=== PATIENT | female | born 2000 | race African-American/Black ===

== ENCOUNTER 2022-07-29 11:37 | Emergency (ER) | payer OTHER ==
[~2022-07-29] VITALS: Ht 167.6 cm; Wt 71.2 kg
[2022-07-29 11:50] VITALS: BP 114/75
[2022-07-29] MEDS ORDERED: cefTRIAXone 500 MG in LIDOCAINE MPF 1% 1 ML IM ONE (12:40)
[2022-07-29] MEDS ORDERED: cefTRIAXone 500 MG VIAL ONE (12:47)
[2022-07-29] MEDS ORDERED: LIDOCAINE MPF 1% 5 ML ONE (12:47)
--- NOTE | 2022-07-29 12:57 | NUR ---
MEDICATED PT WITH [facility].
[2022-07-29 13:26] LABS: APPEARANCE,URINE CLEAR (CLEAR); BILIRUBIN,URINE NEGATIVE (NEGATIVE); BLOOD, URINE NEGATIVE (NEGATIVE); COLOR,URINE YELLOW (YELLOW); LEUKOCYTE ESTERASE ,URINE NEGATIVE (NEGATIVE); NITRITE, URINE NEGATIVE (NEGATIVE); UGLUCOSE 3+ (NEGATIVE)
[2022-07-29] MEDS ORDERED: DOXY-690 PO (13:39)
--- NOTE | 2022-07-29 14:00 | NUR ---
ATTEMPTED TO D/C PT, NOT FOUND IN ROOM. PT LEFT WITHOUT D/C PAPERS. ATTEMPTED TO CONTACT PT TO INFORM HER THAT ABX WAS SENT TO HER PHARMACY. NO ANSWER, LEFT MESSAGE. DR ECHEVARRIA AWARE AWARE.
== END 2022-07-29 14:00 | disposition home or self-care (01) ==
LOC: MED 11:37
DX: A64 Unspecified sexually transmitted disease (principal); Z86.19 Personal history of other infectious and parasitic diseases; Z79.2 Long term (current) use of antibiotics
CPT/HCPCS: 81003; 81025; 96372; 99283; J0696; J2001; 81002

== ENCOUNTER 2022-11-25 07:27 | Emergency (ER) | payer OTHER ==
[~2022-11-25] VITALS: Ht 167.6 cm; Wt 74.8 kg
[~2022-11-25 07:27] MED LIST: DOXY-690 PO
[2022-11-25 07:33] VITALS: BP 156/97
--- NOTE | 2022-11-25 07:36 | NUR ---
PT AMB TO BED 5
--- NOTE | 2022-11-25 07:39 | NUR ---
22 Y/O FEMALE BIB SELF C/O LEFT LOWER TOOTHACHE XLAST NIGHT. DENIES ANY ORAL TRAUMA/INJURY OR KNOWN CAVITY. STATES THAT PAIN RADIATES TO THE LEFT JAW AND NECK. NO SWELLING REDNESS NOTED. NOTED MULTIPLE CARRIES IN THE AFFECTED AREA, NO GINGIVAL SWELLING OR REDNESS NOTED. DENIES ANY MEDICATION PRIOR TO ARRIVAL PMH: DENIES NKA
--- NOTE | 2022-11-25 07:42 | NUR ---
DR OLIVARES AT BEDSIDE FOR EVAL
[2022-11-25] MEDS ORDERED: HYDROcodone/APAP 5/325 MG 1 TAB TAB PO ONE (07:45)
[2022-11-25] MEDS ORDERED: PENI500T20 PO ×2 (07:52→09:50)
[2022-11-25] MEDS ORDERED: ACET-8905 PO ×2 (07:52→09:50)
--- NOTE | 2022-11-25 07:58 | NUR ---
Patient discharged with v/s stable. Written and verbal after care instructions ABOUT DNETAL ABSCESS given and explained. Patient alert, oriented and verbalized understanding of instructions. Ambulatory with steady gait. All questions addressed prior to discharge. ID band removed. Patient advised to follow up with PMD. Rx of PENICILLIN V POTASSIUM, NORCO 5-325 given. Patient educated on indication of medication including possible reaction and side effects. Opportunity to ask questions provided and answered.
[2022-11-25] MEDS ORDERED: DOXY-690 PO (09:50)
== END 2022-11-25 07:57 | disposition home or self-care (01) ==
LOC: MED 07:27
DX: K08.89 Other specified disorders of teeth and supporting structures (principal); E11.9 Type 2 diabetes mellitus without complications; Z79.2 Long term (current) use of antibiotics
CPT/HCPCS: 99283

== ENCOUNTER 2023-05-16 08:51 | Emergency (ER) | payer OTHER ==
[~2023-05-16] VITALS: Ht 170.2 cm; Wt 73.9 kg
[~2023-05-16 08:51] MED LIST changes: +ACET-8905 PO; -DOXY-690 PO; +PENI500T20 PO
[2023-05-16 08:54] VITALS: BP 130/96; PULSE 90; RESP 20; TEMP 98; O2SAT 100
--- NOTE | 2023-05-16 09:03 | NUR ---
PATIENT AMBULATED TO ED BED 08
--- NOTE | 2023-05-16 09:40 | NUR ---
22 y/o female c/o headache x yesterday. Per patient has been medicating with Tylenol at home with no relief. Denies any nausea, vomiting or fevers at this time. Denies any sick contacts or new foods. Patient has sensitivity to light. Patient has a history of pre-eclmapsia on previous , has not been diagnosed now. LMP 11/25/22 Patient is currently on Prenatals and Insulin. Heart tones are at 144BPM at time of assessment. Medical History: DM, HTN, Hx of Pre-eclampsia (1st , not know) NKDA
--- NOTE | 2023-05-16 09:58 | NUR ---
Dr. Granger evaluating patient at bedside.
[2023-05-16] MEDS ORDERED: METOCLOPRAMIDE 10 MG/2 ML INJ VIAL IM ONE (10:05)
[2023-05-16] MEDS ORDERED: ACETAMINOPHEN 325 MG TAB PO ONE (10:05)
--- NOTE | 2023-05-16 10:12 | NUR ---
Lab at bedside.
[2023-05-16 10:24] LABS: BASOPHILS % (AUTO) 0.3 % (0.0-2.0); EOSINOPHILS # (AUTO) 0.1 K/uL (0-0.4); EOSINOPHILS % (AUTO) 0.5 % (0.0-4.0); HEMATOCRIT 31.5 % (36-48); HEMOGLOBIN 10.4 g/dL (12.0-16.0); LYMPHOCYTES # (AUTO) 2.1 K/uL (2.5-16.5); LYMPHOCYTES % (AUTO) 15.4 % (20.5-51.1); MEAN CORPUSCULAR HEMOGLOBIN 26 pg (27-31); MEAN CORPUSCULAR HGB CONC 33 g/dL (33-37); MEAN CORPUSCULAR VOLUME 78.7 fL (80-94); MONOCYTES # (AUTO) 0.9 K/uL (0.8-1.0); MONOCYTES % (AUTO) 6.5 % (1.7-9.3); NEUTROPHILS # (AUTO) 10.8 K/uL (1.8-7.7); NEUTROPHILS % (AUTO) 77.3 % (42.2-75.2); PLATELET COUNT (AUTO) 337 K/uL (140-450); RED CELL DISTRIBUTION WIDTH 13.2 % (11.6-13.7); WHITE BLOOD COUNT (AUTO) 13.9 K/uL (4.8-10.8)
[2023-05-16 11:10] LABS: ALBUMIN 2.6 g/dL (3.4-5.0); ANION GAP 14.3 (8-16); CARBON DIOXIDE 23.3 mmol/L (21-32); CREATININE 0.5 mg/dL (0.6-1.3); MAGNESIUM 1.5 mg/dL (1.8-2.4); POTASSIUM 3.6 mmol/L (3.5-5.1); TOTAL BILIRUBIN 0.1 mg/dL (0.0-1.0)
[2023-05-16 11:11] LABS: APPEARANCE,URINE CLEAR (CLEAR); BILIRUBIN,URINE NEGATIVE (NEGATIVE); BLOOD, URINE NEGATIVE (NEGATIVE); COLOR,URINE YELLOW (YELLOW); LEUKOCYTE ESTERASE ,URINE NEGATIVE (NEGATIVE); NITRITE, URINE NEGATIVE (NEGATIVE); UGLUCOSE 3+ (NEGATIVE)
[2023-05-16] MEDS ORDERED: MAGNESIUM OXIDE 400 MG TAB PO ONE (11:50)
--- NOTE | 2023-05-16 12:04 | NUR ---
Patient was offered snacks.
[2023-05-16] MEDS ORDERED: MORPHINE SULFATE 2 MG/ML SYR IM ONE (12:20)
[2023-05-16 12:33] VITALS: TEMP 97.6
[2023-05-16] MEDS ORDERED: METO-485 PO (12:35)
[2023-05-16] MEDS ORDERED: ACET-10509 PO (13:40)
[2023-05-16 13:45] VITALS: BP 109/80; PULSE 74; RESP 17; O2SAT 98
--- NOTE | 2023-05-16 13:45 | NUR ---
Patient discharged with v/s stable. Written and verbal after care instructions given and explained. Patient alert, oriented and verbalized understanding of instructions. Ambulatory with steady gait. All questions addressed prior to discharge. ID band removed. Patient advised to follow up with PMD. Rx of REGLAN given. Patient educated on indication of medication including possible reaction and side effects. Opportunity to ask questions provided and answered.
[2023-05-18 08:40] LABS: LACTATE DEHYDROGENASE 106 IU/L (0-214)
== END 2023-05-16 13:45 | disposition home or self-care (01) ==
LOC: MED 08:51
DX: O26.892 Other specified pregnancy related conditions, second trimester (principal); R51.9 Headache, unspecified; D64.9 Anemia, unspecified; E11.9 Type 2 diabetes mellitus without complications; Z3A.24 24 weeks gestation of pregnancy; Z79.899 Other long term (current) drug therapy; Z79.4 Long term (current) use of insulin
CPT/HCPCS: 36415; 80053; 81003; 81025; 83625; 83735; 85025; 96372; 99284; J2270; J2765

== ENCOUNTER 2023-06-17 20:19 | Emergency (ER) | payer OTHER ==
[~2023-06-17] VITALS: Ht 167.6 cm; Wt 73.9 kg
[~2023-06-17 20:19] MED LIST changes: +ACET-10509 PO; +METO-485 PO
[2023-06-17 20:21] VITALS: BP 119/71; PULSE 107; RESP 16; TEMP 96.7; O2SAT 98
[2023-06-18] MEDS ORDERED: METR0.752 VG (00:19)
== END 2023-06-18 00:28 | disposition home or self-care (01) ==
LOC: MED 20:19
DX: O23.592 Infection of other part of genital tract in pregnancy, second trimester (principal); O24.112 Pre-existing type 2 diabetes mellitus, in pregnancy, second trimester; B96.89 Other specified bacterial agents as the cause of diseases classified elsewhere; Z3A.27 27 weeks gestation of pregnancy; Z79.899 Other long term (current) drug therapy; Z79.2 Long term (current) use of antibiotics
CPT/HCPCS: 87210; 99283

== ENCOUNTER 2023-09-23 21:30 | Emergency (ER) | payer OTHER ==
[~2023-09-23] VITALS: Ht 167.6 cm; Wt 74.8 kg
[~2023-09-23 21:30] MED LIST changes: +METR0.752 VG
[2023-09-23 22:00] VITALS: BP 137/96; PULSE 82; RESP 20; TEMP 97.4; O2SAT 99
[2023-09-23 22:56] LABS: APPEARANCE,URINE CLEAR (CLEAR); BILIRUBIN,URINE NEGATIVE (NEGATIVE); BLOOD, URINE NEGATIVE (NEGATIVE); COLOR,URINE YELLOW (YELLOW); LEUKOCYTE ESTERASE ,URINE NEGATIVE (NEGATIVE); NITRITE, URINE NEGATIVE (NEGATIVE); PH,URINE 6.5 (5.0-9.0); PROTEIN,URINE NEGATIVE (NEGATIVE); UGLUCOSE 3+ (NEGATIVE); UROBILINOGEN,URINE 0.2 EU/dL (0.2 - 1)
[2023-09-23 23:08] LABS: BACTERIA,URINE 1+ /HPF (None Seen); MUCUS,URINE 1+ /LPF (None Seen); RBC,URINE NONE SEEN /HPF (0-5); SQUAMOUS EPITHELIAL CELL,UR 0-3 (FEW) /LPF (0-3 (FEW)); WBC,URINE 0-5 /HPF (0-5)
== END 2023-09-24 01:31 | disposition left against medical advice (07) ==
LOC: MED 21:30
DX: R11.2 Nausea with vomiting, unspecified (principal); R19.7 Diarrhea, unspecified; Z53.21 Procedure and treatment not carried out due to patient leaving prior to being seen by health care provider
CPT/HCPCS: 81001; 81025; 99281

== ENCOUNTER 2024-06-13 17:47 | Emergency (ER) | payer OTHER ==
[~2024-06-13] VITALS: Ht 167.6 cm; Wt 74.4 kg
[~2024-06-13 17:47] MED LIST changes: -ACET-10509 PO; +ACET500T99 PO
[2024-06-13 17:50] VITALS: BP 115/70; PULSE 96; RESP 18; TEMP 98.6; O2SAT 99
[2024-06-13] MEDS: KETOROLAC 30 MG/ML VIAL IVP ONE (18:50)
[2024-06-13] MEDS: NACL 0.9% 2,000 ML IV ONE (18:51)
[2024-06-13 18:54] LABS: BASOPHILS # (AUTO) 0.1 K/uL (0.00-0.22); BASOPHILS % (AUTO) 1.1 % (0.0-2.0); EOSINOPHILS # (AUTO) 0.1 K/uL (0-0.4); EOSINOPHILS % (AUTO) 1.6 % (0.0-4.0); HEMATOCRIT 35.5 % (36-48); HEMOGLOBIN 11.7 g/dL (12.0-16.0); LYMPHOCYTES # (AUTO) 2.5 K/uL (2.5-16.5); LYMPHOCYTES % (AUTO) 32.6 % (20.5-51.1); MEAN CORPUSCULAR HEMOGLOBIN 26 pg (27-31); MEAN CORPUSCULAR HGB CONC 33 g/dL (33-37); MEAN CORPUSCULAR VOLUME 79.1 fL (80-94); MONOCYTES # (AUTO) 0.7 K/uL (0.8-1.0); MONOCYTES % (AUTO) 8.7 % (1.7-9.3); NEUTROPHILS # (AUTO) 4.3 K/uL (1.8-7.7); PLATELET COUNT (AUTO) 322 K/uL (140-450); RED BLOOD CELL COUNT(AUTO) 4.49 MIL/uL (4.20-5.40); RED CELL DISTRIBUTION WIDTH 13.7 % (11.6-13.7); WHITE BLOOD COUNT (AUTO) 7.7 K/uL (4.8-10.8)
[2024-06-13 19:02] LABS: ANION GAP 9.5 (8-16); CALCIUM 8.4 mg/dL (8.5-10.1); CARBON DIOXIDE 29.8 mmol/L (21-32); CREATININE 0.9 mg/dL (0.6-1.3); POTASSIUM 4.3 mmol/L (3.5-5.1)
[2024-06-13 21:14] LABS: APPEARANCE,URINE CLEAR (CLEAR); BILIRUBIN,URINE NEGATIVE (NEGATIVE); BLOOD, URINE TRACE-I (NEGATIVE); COLOR,URINE YELLOW (YELLOW); LEUKOCYTE ESTERASE ,URINE NEGATIVE (NEGATIVE); NITRITE, URINE NEGATIVE (NEGATIVE); PROTEIN,URINE NEGATIVE (NEGATIVE); UGLUCOSE 3+ (NEGATIVE); UROBILINOGEN,URINE 0.2 EU/dL (0.2 - 1)
[2024-06-13 21:15] LABS: BACTERIA,URINE FEW /HPF (None Seen); SQUAMOUS EPITHELIAL CELL,UR 0-3 (FEW) /LPF (0-3 (FEW)); WBC,URINE 0-5 /HPF (0-5)
[2024-06-13] MEDS: MORPHINE SULFATE 4 MG/ML SYR IVP ONE (21:17)
[2024-06-13] MEDS ORDERED: NAPR-337 PO (21:56)
[2024-06-13] MEDS ORDERED: AMOX500C25 PO (21:56)
[2024-06-13] MEDS ORDERED: ACET-8905 PO (21:56)
[2024-06-13] MEDS ORDERED: ACET500T99 PO (21:58)
[2024-06-13 22:21] VITALS: BP 116/70; PULSE 70; RESP 17; TEMP 97.2; O2SAT 100
== END 2024-06-13 22:21 | disposition home or self-care (01) ==
LOC: MED 17:47
DX: J02.9 Acute pharyngitis, unspecified (principal); E11.65 Type 2 diabetes mellitus with hyperglycemia; Z20.822 Contact with and (suspected) exposure to COVID-19; Z79.899 Other long term (current) drug therapy
CPT/HCPCS: 36415; 80048; 81001; 81025; 82009; 82948; 85025; 87081; 87426; 96361; 96374; 96375; 99284; J1885; J2270; J7030